=== PATIENT | male | born 1965 | race Caucasian/White ===

== ENCOUNTER 2018-05-14 06:48 | Emergency (ER) | payer BC ==
[~2018-05-14] VITALS: Ht 193 cm; Wt 132.0 kg
[2018-05-14 07:37] LABS: HEMATOCRIT 42.8 % (39.0-50.0); HEMOGLOBIN 15.1 g/dl (14.0-18.0); IMMATURE GRANULOCYTES 1.2 % (0.0-5.0); MEAN CELL VOLUME 93.7 fL CALC (80.0-100.0); MEAN CORPUSCULAR HGB CONC 35.3 g/L CALC (32.0-36.0); NEUT# 3.01 thou/uL (1.82-7.42); RED BLOOD COUNT 4.57 mill/uL (4.70-6.10); RED CELL DISTRI WIDTH 11.8 % (11.5-15.5)
[2018-05-14 08:05] LABS: ALBUMIN 4.5 g/dL (3.2-5.0); ALKALINE PHOSPHATASE 61 u/l (38-126); ANION GAP 15 (6-22 (CALC)); BILIRUBIN, TOTAL 0.2 mg/dL (0.0-1.4); BUN 15 mg/dL (9-20); BUN/CREATININE RATIO 15 (12-20 (CALC)); CARBON DIOXIDE 27 mmol/l (22-30); CHLORIDE 102 mmol/l (95-108); GFR > 60 ML/MIN (>=60 (CALC)); GFR FOR AFR.AMER. > 60 ML/MIN (>=60 (CALC)); SGOT/AST 22 u/l (17-59); SODIUM 139 mmol/l (137-146); TOTAL PROTEIN 7.4 g/dL (6.3-8.2)
[2018-05-14 08:14] LABS: POTASSIUM 5.2 mmol/l (3.5-5.1)
[2018-05-14] MEDS ORDERED: NAPROSYN500 MG PO (08:17)
[2018-05-14] MEDS ORDERED: FLEXERIL PO (08:17)
[2018-05-14 08:36] LABS: URINE BILIRUBIN - DIPSTICK NEGATIVE (NEGATIVE); URINE BLOOD DIPSTICK NEGATIVE (NEGATIVE); URINE COLOR YELLOW; URINE GLUCOSE - DIPSTICK NEGATIVE (NEGATIVE); URINE KETONE NEGATIVE (NEGATIVE); URINE LEUK ESTERASE NEGATIVE (NEGATIVE); URINE NITRITE - DIPSTICK NEGATIVE (Negative); URINE PH 5.5 (4.5-8.0); URINE PROTEIN - DIPSTICK 30 mg/dL (NEG-TRACE); URINE SPECIFIC GRAVITY 1.025; URINE UROBILINOGEN - DIPSTICK 0.2 E.U./dL (0.2)
[2018-05-14 08:37] LABS: URINE CLARITY SL CLOUDY; URINE MUCUS FEW hpf (NONE-FEW)
[2018-05-14 08:40] VITALS: BP 35/82
== END 2018-05-14 08:50 | disposition home or self-care (01) | DRG 93 ==
LOC: ED 06:48
PROVIDERS: Emergency Medicine
DX: R25.2 Cramp and spasm (principal); F17.290 Nicotine dependence, other tobacco product, uncomplicated

== ENCOUNTER 2019-01-23 06:37 | Day surgery (SDC) | payer BC ==
[~2019-01-23] VITALS: Ht 193 cm; Wt 133.8 kg
[~2019-01-23 06:37] MED LIST: FLEXERIL PO; MELOXICAM15 MG PO; NAPROSYN500 MG PO
[2019-01-23] MEDS ORDERED: FISH OIL1000 MG PO (06:52)
[2019-01-23 08:48] VITALS: BP 118/67
== END 2019-01-23 09:02 | disposition home or self-care (01) | DRG 951 ==
LOC: ENDO 06:37 → ORM 08:00 → ENDO 09:02
PROVIDERS: ATTEND Surgery
PROC: 0DJD8ZZ Inspection of Lower Intestinal Tract, Via Natural or Artificial Opening Endoscopic (ICD-10-PCS; principal; 2019-01-23)
DX: Z12.11 Encounter for screening for malignant neoplasm of colon (principal); F17.210 Nicotine dependence, cigarettes, uncomplicated; Z80.0 Family history of malignant neoplasm of digestive organs